=== PATIENT | male | born 1950 | race Caucasian/White ===

== ENCOUNTER 2023-03-19 10:41 | Inpatient (IN) | payer OTHER ==
[~2023-03-19] VITALS: Ht 162.6 cm; Wt 90.9 kg
[2023-03-19] VITALS (14 sets, daily range): BP systolic 108–180; BP diastolic 72–114; PULSE 11–92; RESP 16–18; TEMP 98.3–98.6; O2SAT 92–96
[~2023-03-19 10:41] MED LIST: ASPI-543 PO; ATOR40TA52 PO; LEVO25TA6 PO; LOSA25TA15 PO; METO25TA5 PO
[2023-03-19] MEDS ORDERED: VERAPAMIL 2.5MG/ML INJ 2ML VIAL IV ONE (14:26)
[2023-03-19] MEDS ORDERED: HEPARIN SODIUM (PORCINE) 5000 UNITS/ML 1ML VIAL ONE (14:26)
[2023-03-19] MEDS ORDERED: ANGIOMAX 250 MG VIAL IV ONE ×2 (14:26→15:47)
[2023-03-19] MEDS ORDERED: SODIUM CHL 0.9% 50 ML ONE ×2 (14:27→15:47)
[2023-03-19] MEDS ORDERED: LIDOCAINE 2%HCL (LOCAL ANESTH.) INJ 20ML MDV ONE (14:27)
[2023-03-19] MEDS ORDERED: fentaNYL CITRATE 100 MCG/2 ML VL ONE (14:27)
[2023-03-19] MEDS ORDERED: IODIXANOL 320MG/ML 100ML BTL IV ONE ×7 (14:27→16:53)
[2023-03-19] MEDS ORDERED: MIDAZOLAM HCL 2MG/2ML 2ml VIAL (1mg/ml) ONE ×2 (14:28→14:57)
[2023-03-19] MEDS ORDERED: ASPirin 325 MG TAB ONE (17:04)
[2023-03-19] MEDS ORDERED: CLOPIDOGREL 300 MG TAB ONE (17:04)
[2023-03-19] MEDS ORDERED: CLON0.2T PO (18:10)
[2023-03-19] MEDS ORDERED: CLON-818 PO (18:10)
[2023-03-19] MEDS ORDERED: cloNIDine HCL 0.1 MG TAB ONE (18:13)
[2023-03-19] MEDS ORDERED: cloNIDine HCL 0.1 MG TAB PO PRN (18:30)
[2023-03-19] MEDS: SODIUM CHLOR 0.9% PF (SALINE LOCK) 10ML VIAL/SYR IV SCH (21:24)
[2023-03-19] MEDS: METOPROLOL TARTRATE 25 MG TAB PO SCH (21:25)
[2023-03-19] MEDS ORDERED: ATORVASTATIN 20 MG TAB PO SCH (22:00)
[2023-03-20 05:00] VITALS: BP 126/68; PULSE 68; RESP 18; TEMP 97.9; O2SAT 94
[2023-03-20 06:07] LABS: Basophils # (auto) 0 10 ^3/uL (0-0.2); Basophils % (auto) 0.2 % (0.0-2.0); Eosinophils # (auto) 0.1 10 ^3/uL (0-0.8); Eosinophils % (auto) 0.5 % (0.0-7.0); Hematocrit 42.9 % (41.0-53.0); Hemoglobin 14.9 g/dL (13.5-17.5); Lymphocytes # (auto) 0.8 10 ^3/uL (0.4-5.4); Lymphocytes % (auto) 6.4 % (10.0-50.0); Mean Corpuscular Hemoglobin 30.9 pg (28.0-32.0); Mean Corpuscular Hgb Conc. 34.7 g/dL (32.0-36.0); Mean Corpuscular Volume 89.1 fL (80.0-100.0); Monocytes # (auto) 0.8 10 ^3/uL (0-1.3); Monocytes % (auto) 6.7 % (0.0-12.0); Neutrophils # (auto) 10.2 10 ^3/uL (1.6-8.6); Neutrophils % (auto) 86.2 % (37.0-80.0); Nucleated Red Blood Cells % 0.1 %; Red Blood Cells 4.82 10^6/uL (4.5-5.90); Red Cell Distribution Width 13.2 % (11.8-14.3); White Blood Cell 11.9 10^3/uL (4.4-10.8)
[2023-03-20] MEDS: SODIUM CHLOR 0.9% PF (SALINE LOCK) 10ML VIAL/SYR IV SCH (06:12)
[2023-03-20 06:14] LABS: INR 1.14 (0.9-1.15); Partial Thromboplastin Time 32.2 SEC (24.5-34.5); Prothrombin Time 11.9 sec (9.3-11.8)
[2023-03-20 06:15] LABS: Chloride 108 mmol/L (98-107); Potassium 4.3 mmol/L (3.5-5.1); Sodium 139 mmol/L (136-145)
[2023-03-20 06:16] LABS: Anion Gap 7 (5-15); Carbon Dioxide 24 mmol/L (20-30)
[2023-03-20 06:17] LABS: Calcium 9.2 mg/dL (8.5-10.1)
[2023-03-20 06:21] LABS: Glucose 104 mg/dL (74-106); Triglycerides 184 mg/dL (< 150)
[2023-03-20 06:22] LABS: BUN/Creatinine Ratio 12.9 (10.0-20.0); Blood Urea Nitrogen 18 mg/dL (9-23); LDL Cholesterol 69 mg/dL (< 100)
[2023-03-20 06:24] LABS: Cholesterol 141 mg/dL (< 200); HDL Cholesterol 29 mg/dL (40-59)
[2023-03-20] MEDS ORDERED: LEVOTHYROXINE SODIUM 25 MCG TAB PO SCH (07:00)
[2023-03-20 08:00] VITALS: PULSE 79; PULSE 83; RESP 18; O2SAT 93
[2023-03-20 09:00] VITALS: BP 128/76; PULSE 83; RESP 18; TEMP 98.4; O2SAT 93
[2023-03-20] MEDS: METOPROLOL TARTRATE 25 MG TAB PO SCH (09:04)
[2023-03-20] MEDS ORDERED: ASPirin-EC 81 mg tab PO SCH (10:00)
[2023-03-20] MEDS ORDERED: CLOPIDOGREL BISULFATE 75 MG TAB PO SCH (10:00)
[2023-03-20] MEDS ORDERED: LOSARTAN POTASSIUM 25 MG TAB PO SCH (10:00)
[2023-03-20] MEDS ORDERED: ASPI-543 PO (11:58)
[2023-03-20] MEDS ORDERED: ATOR40TA52 PO (11:58)
[2023-03-20] MEDS ORDERED: CLOP75TA70 PO (12:01)
[2023-03-20 12:11] VITALS: BP 121/73; PULSE 78
== END 2023-03-20 13:20 | disposition home or self-care (01) | DRG 324 ==
LOC: CATH 10:41 → TELE 17:09 → TELE-WESTW 18:37
PROVIDERS: ADMIT Internal Medicine; ATTEND Hospitalist
PROC: 027034Z Dilation of Coronary Artery, One Artery with Drug-eluting Intraluminal Device, Percutaneous Approach (ICD-10-PCS; principal; 2023-03-19)
PROC: 02F03ZZ Fragmentation in Coronary Artery, One Artery, Percutaneous Approach (ICD-10-PCS; 2023-03-19)
PROC: 3E03317 Introduction of Other Thrombolytic into Peripheral Vein, Percutaneous Approach (ICD-10-PCS; 2023-03-19)
PROC: B211YZZ Fluoroscopy of Multiple Coronary Arteries using Other Contrast (ICD-10-PCS; 2023-03-19)
PROC: B215YZZ Fluoroscopy of Left Heart using Other Contrast (ICD-10-PCS; 2023-03-19)
PROC: B218YZZ Fluoroscopy of Left Internal Mammary Bypass Graft using Other Contrast (ICD-10-PCS; 2023-03-19)
PROC: 4A023N7 Measurement of Cardiac Sampling and Pressure, Left Heart, Percutaneous Approach (ICD-10-PCS; 2023-03-19)
DX: I25.10 Atherosclerotic heart disease of native coronary artery without angina pectoris (principal); I10 Essential (primary) hypertension; E78.5 Hyperlipidemia, unspecified; Z91.199 Patient's noncompliance with other medical treatment and regimen due to unspecified reason; Z82.49 Family history of ischemic heart disease and other diseases of the circulatory system
CPT/HCPCS: 36415; 80048; 80061; 83036; 85025; 85610; 85730; 92928; 93458; 99152; 99153; G0378; J2250; Q9967